=== PATIENT | male | born 1960 | race African-American/Black ===

== ENCOUNTER 2016-06-21 01:43 | Emergency (ER) | payer OTHER ==
[2016-06-21 00:40] LABS: BASOPHILS 0.6 %; BASOPHILS ABSOLUTE 0.03 10/3/uL (0.0-0.16); EOSINOPHILS 2.4 %; EOSINOPHILS ABSOLUTE 0.12 10/3/uL (0.0-0.53); ER CBC TAT 0 Hrs 05 Mins; HEMATOCRIT 41.7 % (40.0-51.0); HEMOGLOBIN 14.9 g/dL (13.6-17.8); LYMPHOCYTES 51.7 %; LYMPHOCYTES ABSOLUTE 2.61 10/3/uL (0.67-4.30); MANUAL DIFF NO %; MEAN CORPUS HGB CONC 35.7 g/dL (32.0-36.0); MEAN CORPUSCULAR HEMOGLOB 30.7 pg (26.0-34.0); MEAN CORPUSCULAR VOLUME 85.8 fL (80-100); MEAN PLATELET VOLUME 10.9 fL (9.2-13.0); MONOCYTES 7.7 %; MONOCYTES ABSOLUTE 0.39 10/3/uL (0.21-1.20); NEUTROPHILS 37.6 %; PLATELET COUNT 189 10/3/uL (150-400); RBC DISTRIBUTION WIDTH 12.7 % (12.0-16.0); RED CELL COUNT 4.86 10/6/uL (4.7-6.1); WHITE BLOOD CELLS 5.1 10/3/uL (4.5-10.5)
[2016-06-21 00:46] LABS: PARTIAL THROMBO TIME 30.2 SEC (22.5-37.2); PROTIME (NOT ORD) 12.8 SEC (12.0-14.5)
[2016-06-21 00:56] LABS: BUN (BLOOD UREA NITROGEN) 10 MG/DL (6-23); CALCIUM, SERUM 8.9 MG/DL (8.5-10.4); CHEST PAIN PROFILE TAT 0 Hrs 21 Mins; CHLORIDE, SERUM 105 MMOL/L (96-112); CO2 (CARBON DIOXIDE) 25 MMOL/L (24-34); CREATININE 1.23 MG/DL (0.70-1.30); GFR AFRICAN AMERICAN 75 ML/MIN (>=60); GFR NON AFRICAN AMERICAN 64 ML/MIN (>=60); POTASSIUM, SERUM 3.6 MMOL/L (3.5-5.3); SODIUM, SERUM 140 MMOL/L (135-148); TROPONIN I <0.02 NG/ML (<0.05)
[2016-06-21 01:01] LABS: GLUCOSE, SERUM 184 MG/DL (60-99)
[~2016-06-21 01:43] MED LIST: AMARYL1 MG PO; ANASPAZ0.125 MG PO; ASA5GR PO; ASAB PO; CIALIS2.5 MG PO; CIALIS20 MG PO; CRESTOR20 MG PO; DSS PO; GLUCOPHAGE1000 MG PO; GLUCPH PO; HYOMAX-FT0.125 MG PO; LANTUS SC; LEVSINTAB PO; LORTAB10 PO; MONODOX100 MG PO; NEUR300 PO; NORV10 PO; PR25 PO; PRIN10 PO; PROTONIX PO; STOOL SOFTEN100 MG PO
== END 2016-06-21 03:13 | disposition home or self-care (01) ==
LOC: ER 01:43
PROVIDERS: Specialist
DX: R07.9 Chest pain, unspecified (principal); I10 Essential (primary) hypertension; E11.9 Type 2 diabetes mellitus without complications; F17.200 Nicotine dependence, unspecified, uncomplicated; Z86.73 Personal history of transient ischemic attack (TIA), and cerebral infarction without residual deficits; Z91.041 Radiographic dye allergy status; Z99.0 Dependence on aspirator; Z91.040 Latex allergy status; Z88.1 Allergy status to other antibiotic agents; Z88.0 Allergy status to penicillin; Z79.82 Long term (current) use of aspirin; Z79.4 Long term (current) use of insulin; Z79.899 Other long term (current) drug therapy
CPT/HCPCS: 71020; 80048; 83735; 84484; 85025; 85610; 85730; 93005; 99285; A9270-GY